=== PATIENT | female | born 1955 | race Caucasian/White ===

== ENCOUNTER 2019-09-07 19:12 | Inpatient (IN) | payer MEDICARE, OTHER ==
[~2019-09-07] VITALS: Ht 165.1 cm; Wt 83.4 kg
[~2019-09-07 19:12] MED LIST: ALBU90OI INH; BENZ100A PO; CARV3.125 PO; CELE100 PO; ESCI10; ESCI20 PO; FAMO20 PO; GINKO; HYDACE10B PO; HYDACE5 PO; KETO10 PO; LOSA25; LOSA25 PO; NAPR550 PO; Norco 5-325 Ta1 EACH PO; OMEP20ER; OMEP20ER PO; OSEL75CA PO; OXYACE5T PO; PANT20; PANT40 PO; POTCHL20ER PO; PROM25 PO; RXNAPNA550 PO; SIMV40 PO; ST JOHNS WART; TRAM50; TRAM50 PO; TRAZ50; TRAZ50 PO; WARF2.5 PO; Zofran Odt4 MG SL; [UNRECOGNIZED DRUG - CODE]
[2019-09-07] MEDS ORDERED: Coumadin2 MG PO (20:33)
[2019-09-07] MEDS ORDERED: ATORVASTATIN CA40 MG PO (20:34)
[2019-09-07] MEDS ORDERED: Protonix40 MG PO (20:34)
[2019-09-07] MEDS ORDERED: Lopressor 50 mg50 MG PO (20:34)
[2019-09-07 20:36] LABS: BASOPHILS ABSOLUTE AUTO 0.03 K/mm3 (0.00-0.23); BASOPHILS PERCENT AUTO 0 % (0-2); EOSINOPHILS ABSOLUTE AUTO 0.04 K/mm3 (0.00-0.68); EOSINOPHILS PERCENT AUTO 0 % (0-6); Hematocrit 35.2 % (33.0-51.0); IMMATURE GRAN ABSOLUTE AUTO 0.02 K/mm3 (0.00-0.10); IMMATURE GRAN PERCENT AUTO 0 % (0-1); LYMPHOCYTES ABSOLUTE AUTO 1.83 K/mm3 (0.84-5.20); LYMPHOCYTES PERCENT AUTO 18 % (21-46); MONOCYTES ABSOLUTE AUTO 0.77 K/mm3 (0.16-1.47); MONOCYTES PERCENT AUTO 8 % (4-13); Mean Corpuscular HGB 29.8 pg (26.0-34.0); Mean Corpuscular HGB Conc 31.3 g/dL (31.5-36.5); Mean Corpuscular Volume 95 fL (80-100); Mean Platelet Volume 11.5 fL (9.1-12.4); NEUTROPHILS ABSOLUTE AUTO 7.24 K/mm3 (1.96-9.15); NEUTROPHILS PERCENT AUTO 73 % (41-73); Platelet Count 155 K/mm3 (150-400); RDW Coefficient Variation 13.9 % (11.7-14.2); RDW Standard Deviation 49.7 fL (35.1-46.3); Red Blood Cell Count 3.69 M/mm3 (3.80-5.20); White Blood Cell Count 9.93 K/mm3 (4.00-11.30)
[2019-09-07] MEDS ORDERED: BENADRYL25 MG PO (20:36)
[2019-09-07 20:45] LABS: International Normalized Ratio 3.66; Prothrombin Time Results 34.5 Sec (9.7-11.5)
[2019-09-07 20:49] LABS: Alanine Aminotransfer (ALT/SGP 39 U/L (12-78); Albumin, Blood 3.2 g/dL (3.4-5.0); Albumin/Globulin Ratio 0.8 (0.8-1.8); Alk Phos 109 U/L (50-136); Anion Gap 7 mmol/L (6-16); Aspartate Aminotrans (AST/SGOT 39 U/L (12-37); Bilirubin, Total 1.3 mg/dL (0.1-1.0); Blood Urea Nitrogen 11 mg/dL (8-24); Bun/Creatinine Ratio 12.6 (12.0-20.0); CO2, Blood 23 mmol/L (21-32); Calcium, Blood 7.8 mg/dL (8.5-10.1); Chloride, Blood 106 mmol/L (98-108); Creatinine, Blood 0.88 mg/dL (0.40-1.00); Globulin, Blood 3.8 g/dL (2.2-4.0); Glomerular Filtration Rate >60 (60-); Glucose, Blood 89 mg/dL (70-99); Potassium, Blood 3.6 mmol/L (3.5-5.5); Sodium, Blood 136 mmol/L (136-145)
[2019-09-07 23:09] LABS: Source, Urine Clean Catch
[2019-09-07 23:11] LABS: Bilirubin, Urine Neg (Neg); Blood, Urine 2+ (Neg); Glucose Qualitative, Urine Neg (Neg); Ketones, Urine Neg (Neg); Leukocyte Esterase, Urine 2+ (Neg); Nitrite, Urine Neg (Neg); Protein, Urine 1+ (Neg); Urobilinogen, Urine NORM (Normal)
[2019-09-07 23:23] LABS: Appearance, Urine Clear (Clear); Bacteria Mod /hpf; Color, Urine Yellow (P-Yellow); Red Blood Cells, Urine 0-2 /hpf (0-2); Squamous Epithelial Cells Few /hpf (Few)
--- NOTE | 2019-09-08 02:37 | NUR ---
PT ARRIVAL pt arrived to PCU 8 at 0016 via gurney accompanied by ED RN. JJ. Pt complaint of severe pain, medicated by MAYANK Marrero with dilaudid per orders with stated relief. pt is alert and oriented, able to make needs known, uses call light appropriately. This pt is active in care, asks questions, converses appropriately. No apparent sign of acute distress noted. Breathing is easy, even, unlabored on RA. Pt with no complaints of pain other than pre-existing abd pain for which she is admitted (bowel perf). No complaints or concerns at this time. will continue to montior and provide care per orders.
[2019-09-08 03:53] LABS: International Normalized Ratio 1.62
[2019-09-08 04:58] LABS: Prothrombin Time Results 16.4 Sec (9.7-11.5)
--- NOTE | 2019-09-08 08:02 | NUR ---
Shift Summary Pt with no acute changes this shift. Pt remains painful and medicated per pt request with 0.5 of dilauded. VSS, no acute signs of distress. Pt alert and oriented, able to make needs known, uses call light appropriately, uses personal cane from home to aide in ambulation, BSC for voiding, awaiting stool sample for send off - no BM this shift. Pt without concern or questions for this RN at this time. No acute changes or declines from initial admission assessment. pt has been NPO since midnight per orders. No acute concerns to note at this time. Handoff given to day RN who assumes care.
[2019-09-08 09:35] LABS: BASOPHILS ABSOLUTE AUTO 0.03 K/mm3 (0.00-0.23); BASOPHILS PERCENT AUTO 1 % (0-2); EOSINOPHILS ABSOLUTE AUTO 0.07 K/mm3 (0.00-0.68); EOSINOPHILS PERCENT AUTO 1 % (0-6); Hematocrit 31.4 % (33.0-51.0); Hemoglobin 10.1 g/dL (11.5-16.0); IMMATURE GRAN ABSOLUTE AUTO 0.02 K/mm3 (0.00-0.10); IMMATURE GRAN PERCENT AUTO 0 % (0-1); LYMPHOCYTES ABSOLUTE AUTO 1.12 K/mm3 (0.84-5.20); LYMPHOCYTES PERCENT AUTO 18 % (21-46); MONOCYTES ABSOLUTE AUTO 0.52 K/mm3 (0.16-1.47); MONOCYTES PERCENT AUTO 9 % (4-13); Mean Corpuscular HGB 30.3 pg (26.0-34.0); Mean Corpuscular HGB Conc 32.2 g/dL (31.5-36.5); Mean Corpuscular Volume 94 fL (80-100); Mean Platelet Volume 11.5 fL (9.1-12.4); NEUTROPHILS ABSOLUTE AUTO 4.32 K/mm3 (1.96-9.15); NEUTROPHILS PERCENT AUTO 71 % (41-73); Platelet Count 160 K/mm3 (150-400); RDW Coefficient Variation 13.6 % (11.7-14.2); RDW Standard Deviation 47.8 fL (35.1-46.3); Red Blood Cell Count 3.33 M/mm3 (3.80-5.20); White Blood Cell Count 6.08 K/mm3 (4.00-11.30)
--- NOTE | 2019-09-08 18:54 | NUR ---
SHIFT SUMMARY PATIENT HAS HAD A FEW COMPLAINTS OF PAIN TO ABDOMEN. STATES SHE HAS SMALL FLARE UPS AFTER HAVING CLEAR LIQUIDS. MEDICATED PRN. ABLE TO MAKE HER NEEDS KNOWN. NO ACUTE ISSUES NOTED.
[2019-09-09 04:13] LABS: BASOPHILS ABSOLUTE AUTO 0.02 K/mm3 (0.00-0.23); BASOPHILS PERCENT AUTO 0 % (0-2); EOSINOPHILS ABSOLUTE AUTO 0.08 K/mm3 (0.00-0.68); EOSINOPHILS PERCENT AUTO 2 % (0-6); Hematocrit 31.3 % (33.0-51.0); Hemoglobin 10.2 g/dL (11.5-16.0); IMMATURE GRAN ABSOLUTE AUTO 0.01 K/mm3 (0.00-0.10); IMMATURE GRAN PERCENT AUTO 0 % (0-1); LYMPHOCYTES ABSOLUTE AUTO 1.12 K/mm3 (0.84-5.20); LYMPHOCYTES PERCENT AUTO 25 % (21-46); MONOCYTES PERCENT AUTO 9 % (4-13); Mean Corpuscular HGB 29.7 pg (26.0-34.0); Mean Corpuscular HGB Conc 32.6 g/dL (31.5-36.5); Mean Platelet Volume 11.4 fL (9.1-12.4); NEUTROPHILS ABSOLUTE AUTO 2.95 K/mm3 (1.96-9.15); NEUTROPHILS PERCENT AUTO 65 % (41-73); Platelet Count 168 K/mm3 (150-400); RDW Coefficient Variation 13.2 % (11.7-14.2); RDW Standard Deviation 44.3 fL (35.1-46.3); Red Blood Cell Count 3.44 M/mm3 (3.80-5.20); White Blood Cell Count 4.58 K/mm3 (4.00-11.30)
[2019-09-09 04:15] LABS: Mean Corpuscular Volume 91 fL (80-100)
--- NOTE | 2019-09-09 05:02 | NUR ---
Shift Summary VSS this shift, complaints of pain relieved with medication per emar and repositions. Pt able to ambulate with minimal assistance to bathroom, abx infused this shift without pt complaints of n/v/d. No stool sample collected as of this shift d/t pt without bm this shift. Pt remains alert and oriented, updated on plan of care, cooperative with plan but with expressed concerns regarding snf outcomes. NO acute changes from initial shift assessment, no declines noted this shift, pt is in no apparent sign of distress. Breathing remains even and unlabored on RA. Will continue to monitor and provide care per orders until day RN assumes care.
[2019-09-09 08:52] LABS: International Normalized Ratio 1.03; Prothrombin Time Results 10.9 Sec (9.7-11.5)
--- NOTE | 2019-09-09 11:51 | NUR ---
REPORT CALLED TO [facility] NURSE. REPORT CALLED TO [facility] JERO NURSE RITCHIE. RITCHIE DENIED ANY FURTHER QUESTIONS AT THIS TIME. PT INFORMED OF TRANSFER. BELONGINGS GATHERED. AIDE TO TRANSFER PT VIA WHEELCHAIR. WILL CONTINUE TO MONITOR UNTIL PT IS OFF FLOOR. VSS.
--- NOTE | 2019-09-09 15:26 | NUR ---
PT TRANSFERRED FROM PCU THIS SHIFT. SHE HAS SLEPT MOST OF THE AFTERNOON WITH NO COMPLAINTS. SHE IS ALERT AND ORIENTED AND CONTIUES TO TOLERATE CLEAR LIQUID DIET. NO GAS PASSED OF THIS TIME TIME. CALL LIGHT WITHIN REACH.
--- NOTE | 2019-09-10 03:45 | NUR ---
Continues to receive antibiotics as ordered - see MAR for details. Alert and oriented, requested and received analgesic x 1 this shift - see MAR for details. Resting quietly at this time. Call light in reach.
[2019-09-10 05:23] LABS: BASOPHILS ABSOLUTE AUTO 0.03 K/mm3 (0.00-0.23); BASOPHILS PERCENT AUTO 1 % (0-2); EOSINOPHILS PERCENT AUTO 3 % (0-6); IMMATURE GRAN PERCENT AUTO 0 % (0-1); LYMPHOCYTES ABSOLUTE AUTO 1.31 K/mm3 (0.84-5.20); LYMPHOCYTES PERCENT AUTO 34 % (21-46); MONOCYTES ABSOLUTE AUTO 0.44 K/mm3 (0.16-1.47); MONOCYTES PERCENT AUTO 11 % (4-13); Mean Corpuscular HGB 30.2 pg (26.0-34.0); Mean Corpuscular HGB Conc 32.4 g/dL (31.5-36.5); Mean Corpuscular Volume 93 fL (80-100); Mean Platelet Volume 11.4 fL (9.1-12.4); NEUTROPHILS ABSOLUTE AUTO 1.97 K/mm3 (1.96-9.15); NEUTROPHILS PERCENT AUTO 51 % (41-73); Platelet Count 190 K/mm3 (150-400); RDW Standard Deviation 44.7 fL (35.1-46.3); Red Blood Cell Count 3.64 M/mm3 (3.80-5.20); White Blood Cell Count 3.85 K/mm3 (4.00-11.30)
[2019-09-10 05:37] LABS: International Normalized Ratio 1.01; Prothrombin Time Results 10.7 Sec (9.7-11.5)
[2019-09-10 05:46] LABS: Anion Gap 7 mmol/L (6-16); Blood Urea Nitrogen 7 mg/dL (8-24); CO2, Blood 27 mmol/L (21-32); Calcium, Blood 8.3 mg/dL (8.5-10.1); Chloride, Blood 107 mmol/L (98-108); Creatinine, Blood 0.87 mg/dL (0.40-1.00); Glomerular Filtration Rate >60 (60-); Glucose, Blood 84 mg/dL (70-99); Potassium, Blood 3.5 mmol/L (3.5-5.5); Sodium, Blood 141 mmol/L (136-145)
--- NOTE | 2019-09-10 15:24 | NUR ---
SHE HAS RECEIVED DILAUDID ONCE AND ZOFRAN ONCE TODAY. BOTH WERE EFFECTIVE. SHE HAS TAKEN SOME FL'S. I HAVE NOT SEEN YET TODAY. SHE PASSED GAS WITH A SMALL AMT OF PASTEY STOOL EARLY AM BEFORE DAY SHIFT. ABD MILDLY DISTENDED. THE PAIN IS LOW IN THE ABD MOSTLY ON THE L SIDE. IT IS LESS TODAY THAN PREVIOUS DAYS.
--- NOTE | 2019-09-10 18:16 | NUR ---
SHE FEELS HERSELF BLOATING SHE EATS. NO NAUSEA. DENIES NEED FOR MORE PAIN MEDICINE AT THIS TIME. WAS JUST IN TO SEE HER. SHE SAYS HE MAY ORDER A FOLLOW UP CT SCAN FOR TOMORROW.
[2019-09-11 05:39] LABS: International Normalized Ratio 1.38; Prothrombin Time Results 14.2 Sec (9.7-11.5)
--- NOTE | 2019-09-11 07:17 | NUR ---
SHIFT SUMMARY PT A/O C/O PAIN IN ABD AND MEDICATED PER EMAR X2. INDEPENDENT IN ROOM. C/O STILL BEING BLOATED. ABLE TO SLEEP ON AND OFF T/O NIGHT. CALL LIGHT IN REACH.
--- NOTE | 2019-09-11 17:51 | NUR ---
PATIENT A/OX4, UP INDEPENDENTLY IN ROOM. NO PAIN MEDICATION NEEDED TODAY. VSS, ON RA. DENIES ANY NAUSEA. ADVANCED TO REGULAR DIET AND IS TOLERATING WELL. 20G IV TO HAND WNL AND SL BETWEEN ABX. CALM AND COOPERATIVE WITH CARE, CALLS APPROPRIATELY FOR ASSISTANCE.
[2019-09-12 05:09] LABS: International Normalized Ratio 2.28; Prothrombin Time Results 22.4 Sec (9.7-11.5)
--- NOTE | 2019-09-12 07:28 | NUR ---
SHIFT SUMMARY: PATIENT IS A&OX4, UP TO THE BATHROOM WITH STEADY GAIT. TOLERATING REGULAR DIET WELL AND VS ARE STABLE. INTERMITTENT ABD. PAIN WAS MEDICATED X1 WITH IV DILAUDID WITH GOOD EFFECT.
[2019-09-12] MEDS ORDERED: Culturelle1 CAP PO (12:38)
[2019-09-12] MEDS ORDERED: AMOCLA875 PO (12:38)
--- NOTE | 2019-09-12 14:32 | NUR ---
PT DISHCARGED AT 1315. ALL MEDICATIONS REVIEWED AND EDUCATIONAL MATERIAL SENT. MEDICATION FAXED TO [facility] AND PERSONAL BELONGING COLLECTED AND TAKEN WITH HER. PT ESCORTED VIA WHEEL CHAIR BY THIS LEGUILLON DEBEADER NO DISTRESS NOTED.
== END 2019-09-12 13:23 | disposition home or self-care (01) | DRG 392 ==
LOC: ER 19:12 → PCU 22:25 → ERHOLD 22:25 → MEDS 22:25 → PCU 09-08 00:15 → MEDS 09-09 12:01 → PCU 09-09 12:05 → MEDS 09-12 13:23
PROVIDERS: Hospitalist; Nurse Practitioner Acute Care; Physician Assistant; Surgery; ADMIT Internal Medicine
DX: K57.00 Diverticulitis of small intestine with perforation and abscess without bleeding (principal); Z79.01 Long term (current) use of anticoagulants; I48.91 Unspecified atrial fibrillation; Z87.891 Personal history of nicotine dependence; K21.9 Gastro-esophageal reflux disease without esophagitis; F32.9 Major depressive disorder, single episode, unspecified; E78.5 Hyperlipidemia, unspecified; J44.9 Chronic obstructive pulmonary disease, unspecified; K22.70 Barrett's esophagus without dysplasia; K27.9 Peptic ulcer, site unspecified, unspecified as acute or chronic, without hemorrhage or perforation
CPT/HCPCS: 36415; 80048; 80053; 81001; 85025; 85610; 86850; 86900; 86901; 87086; 90686; 94760; 96365; 96366; 96367; 96375; 99285-25; C9113; G0008; J1170; J2405; J2543; J3430; J3480; J7050

== ENCOUNTER 2020-04-27 14:43 | Emergency (ER) | payer MEDICARE, OTHER ==
[~2020-04-27] VITALS: Ht 165.1 cm; Wt 86.2 kg
[~2020-04-27 14:43] MED LIST changes: +AMOCLA875 PO; +ATOR40TA PO; +ATORVASTATIN CA40 MG PO; +BENADRYL25 MG PO; +Coumadin2 MG PO; +Culturelle1 CAP PO; +ESCI10 PO; +LISI5 PO; +Lopressor 50 mg50 MG PO; +METO50 PO; +NORCO 10-325 T1 EACH PO; +Protonix40 MG PO; +TRAZ100 PO; +WARF3 PO
[2020-04-27 15:30] LABS: BASOPHILS ABSOLUTE AUTO 0.03 K/mm3 (0.00-0.23); BASOPHILS PERCENT AUTO 0 % (0-2); EOSINOPHILS ABSOLUTE AUTO 0.04 K/mm3 (0.00-0.68); EOSINOPHILS PERCENT AUTO 1 % (0-6); Hematocrit 38.1 % (33.0-51.0); Hemoglobin 12.4 g/dL (11.5-16.0); IMMATURE GRAN ABSOLUTE AUTO 0.02 K/mm3 (0.00-0.10); IMMATURE GRAN PERCENT AUTO 0 % (0-1); LYMPHOCYTES ABSOLUTE AUTO 1.14 K/mm3 (0.84-5.20); LYMPHOCYTES PERCENT AUTO 16 % (21-46); MONOCYTES ABSOLUTE AUTO 0.36 K/mm3 (0.16-1.47); MONOCYTES PERCENT AUTO 5 % (4-13); Mean Corpuscular HGB 29.7 pg (26.0-34.0); Mean Corpuscular HGB Conc 32.5 g/dL (31.5-36.5); Mean Corpuscular Volume 91 fL (80-100); NEUTROPHILS ABSOLUTE AUTO 5.42 K/mm3 (1.96-9.15); NEUTROPHILS PERCENT AUTO 77 % (41-73); Platelet Count 184 K/mm3 (150-400); RDW Coefficient Variation 13.6 % (11.7-14.2); RDW Standard Deviation 45.9 fL (35.1-46.3); Red Blood Cell Count 4.17 M/mm3 (3.80-5.20); White Blood Cell Count 7.01 K/mm3 (4.00-11.30)
[2020-04-27 15:46] LABS: International Normalized Ratio 1.31; Prothrombin Time Results 13.8 Sec (9.7-11.5)
[2020-04-27 15:51] LABS: Alanine Aminotransfer (ALT/SGP 33 U/L (12-78); Albumin, Blood 3.7 g/dL (3.4-5.0); Albumin/Globulin Ratio 1.1 (0.8-1.8); Alk Phos 113 U/L (50-136); Anion Gap 7 mmol/L (6-16); Aspartate Aminotrans (AST/SGOT 29 U/L (12-37); Blood Urea Nitrogen 12 mg/dL (8-24); Bun/Creatinine Ratio 15.9 (12.0-20.0); CO2, Blood 25 mmol/L (21-32); Calcium, Blood 8.4 mg/dL (8.5-10.1); Chloride, Blood 110 mmol/L (98-108); Creatinine, Blood 0.76 mg/dL (0.40-1.00); Globulin, Blood 3.5 g/dL (2.2-4.0); Glomerular Filtration Rate >60 (60-); Glucose, Blood 117 mg/dL (70-99); Sodium, Blood 142 mmol/L (136-145); Total Protein, Blood 7.2 g/dL (6.4-8.2)
[2020-04-27 20:06] LABS: Source, Urine Clean Catch
[2020-04-27 20:19] LABS: Appearance, Urine Clear (Clear); Bilirubin, Urine Neg (Neg); Blood, Urine Neg (Neg); Color, Urine Yellow (P-Yellow); Glucose Qualitative, Urine Neg (Neg); Ketones, Urine Neg (Neg); Leukocyte Esterase, Urine Neg (Neg); Nitrite, Urine Neg (Neg); Protein, Urine Neg (Neg); Urobilinogen, Urine NORM (Normal)
== END 2020-04-27 20:50 | disposition home or self-care (01) ==
LOC: ER 14:43
PROVIDERS: Student in an Organized Health Care Education/Training Program
DX: R10.32 Left lower quadrant pain (principal); E86.0 Dehydration; R11.2 Nausea with vomiting, unspecified; I48.91 Unspecified atrial fibrillation; K21.9 Gastro-esophageal reflux disease without esophagitis; E78.5 Hyperlipidemia, unspecified; F32.9 Major depressive disorder, single episode, unspecified; J44.9 Chronic obstructive pulmonary disease, unspecified; Z87.891 Personal history of nicotine dependence; Z79.01 Long term (current) use of anticoagulants; Z79.899 Other long term (current) drug therapy
CPT/HCPCS: 36415; 74177; 80053; 81003; 84484; 85025; 85610; 93005; 93010; 96361; 96374-59; 96375; 96376; 99284-25; J2270; J2405; J7030; Q9967

== ENCOUNTER 2020-08-09 12:38 | Day surgery (SDC) | payer MEDICARE, OTHER ==
[~2020-08-09] VITALS: Ht 167.6 cm; Wt 82.9 kg
[~2020-08-09 12:38] MED LIST changes: +METO25ER PO; +Norco 10-325 T1 EACH PO
--- NOTE | 2020-08-09 14:51 | NUR ---
08/09/20 1451 Stacia Ashraf 1410 POST PROCEDURE. HEART RATE 100s-130s. DR. ARAGON IN ROOM, CONSIDERING ADMITTING PT FOR AFIB WITH RVR. WILL CONTINUE TO MONITOR. 1425 BP STABLE. HEART RATE 89-114. WHICH IS PATIENT'S BASELINE FROM EARLIER TODAY. DR. ARAGON NOTIFIED, WILL EVALUATE PT.
--- NOTE | 2020-08-10 13:44 | NUR ---
08/10/20 1344 Rosalba Landaverde Nicolás PT IN AFIB WITH HR 86-109 IN PREOP. PT HAS HX OF AFIB AND TAKES METOPROLOL AND COUMADIN. PT DID NOT TAKE METOPROLOL ON DAY OF PROCEDURE. DURING PROCEDURE, PT HR ELEVATED TO 124-135. PHYSICIAN NOTIFIED. NO ORDERS GIVEN AT THE TIME. HR CONTINUES TO ELEVATE, PHYSICIAN NOTIFIED WHEN HR 135-145. LABETALOL 5MG GIVEN IVP PER PHYSICIAN ORDERS. BP STABLE AT THIS TIME. PHYSICIAN CONTINUES PROCEDURE, NOTING PT HAS TORTUOU COLON. BP READING BEGIN TO ELEVATE, ALONG WITH CONTINUED INCREASING OF HR OF 145-165 (171 AT ONE POINT). PROCEDURE TERMINATED. HR CONTINUES TO REMAIN ELEVATED, DR. GRIFFIN (ANESTHESIOLOGIST) IN FOR ASSISTANCE. ESMOLOL 5ML GIVEN, HR DECREASES SLIGHTLY (135-145). PT TRANSFERRED TO STEP DOWN. CARE TRANSFERRED TO SIMONE LAU.
== END 2020-08-09 16:12 | disposition home or self-care (01) ==
LOC: ORSCSDS 12:38
PROVIDERS: Surgery
PROC: 0DJD8ZZ Inspection of Lower Intestinal Tract, Via Natural or Artificial Opening Endoscopic (ICD-10-PCS; principal; 2020-08-09 13:45)
DX: R10.9 Unspecified abdominal pain (principal); Z87.19 Personal history of other diseases of the digestive system; J44.9 Chronic obstructive pulmonary disease, unspecified; I48.91 Unspecified atrial fibrillation; I10 Essential (primary) hypertension; E78.5 Hyperlipidemia, unspecified; Z79.01 Long term (current) use of anticoagulants; Z79.899 Other long term (current) drug therapy
CPT/HCPCS: J2704; J7120

== ENCOUNTER 2020-11-01 08:54 | Day surgery (SDC) | payer MEDICARE, OTHER ==
[~2020-11-01] VITALS: Ht 165.1 cm; Wt 85.0 kg
--- NOTE | 2020-11-01 09:25 | NUR ---
11/01/20 0925 CLAUDIA REIS ONE ATTEMPT BY MAU IN RH VALVE ONE SUCCESSFUL IN RAC BY MAU PT TOW
--- NOTE | 2020-11-01 11:54 | NUR ---
11/01/20 Farhan Florentino PT NAUSEA RESOLVED AFTER MEDICATION. PT TOLERATING WATER. PT AWAKE, ALERT, ORIENTED. PT STATES SHE IS READY TO GO HOME.
== END 2020-11-01 11:57 | disposition home or self-care (01) ==
LOC: ORSCSDS 08:54
PROVIDERS: Surgery
PROC: 0DJD8ZZ Inspection of Lower Intestinal Tract, Via Natural or Artificial Opening Endoscopic (ICD-10-PCS; principal; 2020-11-01 10:00)
DX: K62.5 Hemorrhage of anus and rectum (principal); K57.30 Diverticulosis of large intestine without perforation or abscess without bleeding; I48.91 Unspecified atrial fibrillation; I10 Essential (primary) hypertension; E78.00 Pure hypercholesterolemia, unspecified; E66.9 Obesity, unspecified; Z68.31 Body mass index [BMI] 31.0-31.9, adult; Z79.01 Long term (current) use of anticoagulants; Z79.899 Other long term (current) drug therapy
CPT/HCPCS: J2405; J2704; J2765

== ENCOUNTER 2020-12-02 11:00 | Inpatient (IN) | payer MEDICARE, OTHER ==
[~2020-12-02] VITALS: Ht 167.6 cm; Wt 84.4 kg
--- NOTE | 2020-12-07 06:34 | NUR ---
Ambulatory in Day Surgery History, Chart, Medications and Allergies reviewed before start of procedure. Pre-Op teaching done. Pt verbalizes understanding. Lungs clear T/O to Auscultation.
--- NOTE | 2020-12-07 11:25 | NUR ---
12/07/20 1125 WILFRID,MARIA L EPIDURAL PLACED INTR OP BY DR ADDISON PRIOR TO PROCEDURE.
--- NOTE | 2020-12-07 13:50 | NUR ---
pt sleeping wakes to verbal stimuli falls back to sleep
--- NOTE | 2020-12-07 17:28 | NUR ---
pt awake stated she is having resless legs elevated the legs of the bed pt denies abd pain
[2020-12-08 04:18] LABS: BASOPHILS PERCENT AUTO 0 % (0-2); EOSINOPHILS PERCENT AUTO 0 % (0-6); Hematocrit 28.5 % (33.0-51.0); Hemoglobin 8.9 g/dL (11.5-16.0); IMMATURE GRAN ABSOLUTE AUTO 0.02 K/mm3 (0.00-0.10); IMMATURE GRAN PERCENT AUTO 0 % (0-1); LYMPHOCYTES ABSOLUTE AUTO 1.13 K/mm3 (0.84-5.20); LYMPHOCYTES PERCENT AUTO 12 % (21-46); MONOCYTES ABSOLUTE AUTO 0.67 K/mm3 (0.16-1.47); MONOCYTES PERCENT AUTO 7 % (4-13); Mean Corpuscular HGB 29.2 pg (26.0-34.0); Mean Corpuscular HGB Conc 31.2 g/dL (31.5-36.5); Mean Corpuscular Volume 93 fL (80-100); Mean Platelet Volume 11.8 fL (9.1-12.4); NEUTROPHILS PERCENT AUTO 82 % (41-73); Platelet Count 155 K/mm3 (150-400); RDW Coefficient Variation 14.4 % (11.7-14.2); RDW Standard Deviation 49.5 fL (35.1-46.3); Red Blood Cell Count 3.05 M/mm3 (3.80-5.20); White Blood Cell Count 9.82 K/mm3 (4.00-11.30)
[2020-12-08 04:34] LABS: Anion Gap 6 mmol/L (6-16); Blood Urea Nitrogen 13 mg/dL (8-24); Bun/Creatinine Ratio 18.8 (12.0-20.0); CO2, Blood 28 mmol/L (21-32); Calcium, Blood 7.8 mg/dL (8.5-10.1); Chloride, Blood 110 mmol/L (98-108); Creatinine, Blood 0.69 mg/dL (0.40-1.00); Glomerular Filtration Rate >60 (60-); Glucose, Blood 141 mg/dL (70-99); Potassium, Blood 4.3 mmol/L (3.5-5.5); Sodium, Blood 144 mmol/L (136-145)
--- NOTE | 2020-12-08 06:04 | NUR ---
SHIFT SUMMARY LYING IN SEMI FOWLERS WITH EYES CLOSED, HAS BEEN COOPERATIVE WITH CARE. EPIDURAL IN PROGRESS PER MD ORDERS, DENIES PAIN CURRENTLY. SIPS AND CHIPS FOR ORAL COMFORT. MIDLINE BRADEN IS PATENT, FOAM IS COMPRESSED. SHADOWING NOTED TO DRESSING. ENCOURAGED TO T/C/DB FOR COMFORT AND PREVENTION, VOICES UNDERSTANDING. NO SIGNICANT CHANGES NOTED THIS SHIFT. SAFETY MEAURES IN PLACE. WILL CONTINUE TO MONITOR UNTIL HAND OFF TO ONCOMING SHIFT USING SBAR.
--- NOTE | 2020-12-08 10:45 | NUR ---
PAIN PT RELUCTANT TO PUSH BOLUS BUTTON, STATING DOES NOT LIKE HOW EPIDURAL MAKES HER FEEL. PT RATING PAIN 7-8 ON PAIN SCALE. PROVIDED K PAD AND BOOSTED UP IN BED. REPORTS REPOSITIONING FEELS BETTER. CALL LIGHT IN REACH.
--- NOTE | 2020-12-08 11:47 | NUR ---
DR ARAGON IN TO SEE PT.
--- NOTE | 2020-12-08 17:33 | NUR ---
SUMMARY NO ACUTE CHANGES T/O SHIFT. PT RATING PAIN APPROXIMATELY 6/10. PROVIDED K PAD FOR COMFORT. ENCOURAGED EPIDURAL BOLUS HANDLE USE; PT RELUCTANT, STATING DOES NOT LIKE HOW IT MAKES HER FEEL. PT SAT UP IN CHAIR FOR FEW HOURS. NOW BACK TO BED. RESTING W/EYES CLOSED. CALL LIGHT IN REACH.
[2020-12-09 04:37] LABS: BASOPHILS ABSOLUTE AUTO 0.02 K/mm3 (0.00-0.23); BASOPHILS PERCENT AUTO 0 % (0-2); EOSINOPHILS ABSOLUTE AUTO 0.05 K/mm3 (0.00-0.68); EOSINOPHILS PERCENT AUTO 1 % (0-6); Hematocrit 28.3 % (33.0-51.0); Hemoglobin 8.7 g/dL (11.5-16.0); IMMATURE GRAN ABSOLUTE AUTO 0.03 K/mm3 (0.00-0.10); IMMATURE GRAN PERCENT AUTO 0 % (0-1); LYMPHOCYTES ABSOLUTE AUTO 1.87 K/mm3 (0.84-5.20); LYMPHOCYTES PERCENT AUTO 23 % (21-46); MONOCYTES ABSOLUTE AUTO 0.52 K/mm3 (0.16-1.47); MONOCYTES PERCENT AUTO 6 % (4-13); Mean Corpuscular HGB 29.6 pg (26.0-34.0); Mean Corpuscular HGB Conc 30.7 g/dL (31.5-36.5); Mean Corpuscular Volume 96 fL (80-100); Mean Platelet Volume 12.4 fL (9.1-12.4); NEUTROPHILS PERCENT AUTO 70 % (41-73); Platelet Count 139 K/mm3 (150-400); RDW Coefficient Variation 14.7 % (11.7-14.2); RDW Standard Deviation 51.9 fL (35.1-46.3); Red Blood Cell Count 2.94 M/mm3 (3.80-5.20); White Blood Cell Count 8.19 K/mm3 (4.00-11.30)
[2020-12-09 05:04] LABS: Alanine Aminotransfer (ALT/SGP 102 U/L (12-78); Albumin, Blood 2.7 g/dL (3.4-5.0); Albumin/Globulin Ratio 0.8 (0.8-1.8); Alk Phos 74 U/L (50-136); Anion Gap 3 mmol/L (6-16); Aspartate Aminotrans (AST/SGOT 49 U/L (12-37); Bilirubin, Total 0.7 mg/dL (0.1-1.0); Blood Urea Nitrogen 8 mg/dL (8-24); Bun/Creatinine Ratio 11.4 (12.0-20.0); CO2, Blood 33 mmol/L (21-32); Calcium, Blood 7.9 mg/dL (8.5-10.1); Chloride, Blood 108 mmol/L (98-108); Globulin, Blood 3.3 g/dL (2.2-4.0); Glomerular Filtration Rate >60 (60-); Glucose, Blood 100 mg/dL (70-99); Potassium, Blood 3.8 mmol/L (3.5-5.5); Sodium, Blood 144 mmol/L (136-145)
--- NOTE | 2020-12-09 06:57 | NUR ---
SUMMARY POSSIBLOE D/C OF EPIDURAL TODAY. PT RECEIVING MS IV FOR BREAKTHROUGH PAIN. SAHU PATENT.
--- NOTE | 2020-12-09 16:32 | NUR ---
shift summary: vss, pt remaining a/o x 4, no acute changes. pt denies need of analgesia at this time. epidural removed this shift, jones catheter will be removed at 1800. pt sitting up in chair, tolerating small amounts of clear liquids, denies n/v. franca dressing c/d/i, compressed. lap sites c/d/i. full sensation ble.
--- NOTE | 2020-12-10 05:01 | NUR ---
SHIFT SUMMARY PT IS A/O X4 AND IND IN ROOM. PT HAS ONLY C/O PAIN ONCE AND WAS MED WITH MORPHINE PER ORDER SHE REPORTS PO PAIN MED MAKE HER NAUSEOUS WITHOUT FOOD IN HER STOMACH. PT HAS DENIED NAUSEA OVERNIGHT AND IS TOLERATING CLEAR LIQUIDS. PT VOIDING AND HAD SMALL BM THIS SHIFT. HEAT PACK IN PLACE TO ABD FOR PAIN MANAGEMENT. PT RESTING IN BED AT THIS TIME WITH CALL LIGHT IN REACH.
--- NOTE | 2020-12-10 15:32 | NUR ---
SHIFT SUMMARY POD3 LAP ASST SIG COL RESECTION, BRADEN AND 4 LAP SITES WNL. PT A&OX4, VSS, INDEPENDENT IN ROOM/TO BRP/UP TO CHAIR, VOIDING WELL, BM TODAY, RACHEAL CL DIET. WILL REPORT TO ONCOMING RN.
--- NOTE | 2020-12-11 05:59 | NUR ---
SHIFT SUMMARY PT IS A/O X4 AND IND IN ROOM. S/P SIGMOID COLECTOMY ON 12/07. TOLERATING FULL LIQUID DIET W/O NAUSEA. PT REPORTED SOME PAIN OVERNIGHT AND WAS MED PRN WITH MORPHINE PER ORDERS. SHE HAS BEEN VOIDING AND HAD ONE BM THIS SHIFT. NO ACUTE CHANGES OVERNIGHT. PT RESTING IN BED WITH CALL LIGHT IN REACH.
--- NOTE | 2020-12-11 15:58 | NUR ---
SHIFT SUMMARY PT A&OX4, VSS, POD4 LAP RESECTION, BRADEN AND LAP SITES WNL, PASSING FLATUS AND BM'S, VOIDING WELL. AMBULATING IN ROOM, TO BRP, UP TO CHAIR. RACHEAL CLEAR LIQUID DIET. SHOWERED TODAY. WILL REPORT TO ONCOMING NOC RN.
--- NOTE | 2020-12-12 05:44 | NUR ---
SHIFT SUMMARY PT IS A/O X4, IND IN ROOM. AMBULATED IN HALLWAY WITH RN THIS SHIFT AND TOLERATED WELL. PAIN MANAGED WITH MORPHINE ONCE PER ORDERS. DISCUSSED TRANSITIONING TO PO PAIN MED TODAY SHE IS TOLERATING MORE PO INTAKE. PT REPORTS PASSING FLATUS OVERNIGHT, NO BM THIS SHIFT. NO ACUTE CHANGES OVERNIGHT. PT RESTING IN BED AT THIS TIME WITH CALL LIGHT IN REACH.
--- NOTE | 2020-12-12 17:10 | NUR ---
SUMMARY: PT IS POD5 SIGMOID COLECTOMY. A/O VSS. SURGICAL SITE WNL. PT PASSING GAS AND HAVING LIQ BM'S. DENIES NEED FOR PAIN MEDICATION MOST OF THE TIME. GIVEN MORPHINE X1, STATING THAT IT WORKS THE BEST. DID ENCOURAGE PO PAIN MANAGEMENT. PT TOLERATED REG DIET. HAD XR WITH BARIUM ENEMA TODAY. NO ACUTE CONCERNS. PLAN IS TO DC TOMORROW.
--- NOTE | 2020-12-13 05:36 | NUR ---
SHIFT SUMMARY A/O, ABLE TO MAKE NEEDS KNOWN. COOPERATIVE WITH CARE. CALLS AND ANSWERS QUESTIONS APPROPRIATELY. NO C/O PAIN/DISCOMFORT. INDEPENDENT IN THE ROOM. NO ACUTE CHANGES NOTED OVERNIGHT. APPEARED TO REST MUCH OF THE NIGHT. BED REMAINED IN LOWEST POSITION. CALL LIGHT AND BELONGINGS WITHIN REACH. CONTINUE WITH CURRENT PLAN OF CARE. REPORT TO ONCOMING RN.
--- NOTE | 2020-12-13 13:43 | NUR ---
DISCHARGE: PACKET PRINTED AND PT EDUCATED. NO SCRIPTS NEEDED OR MEDS FAXED. PT INSTRUCTED ON INCISION CARE, WOUND CLEANSED AND MEPILEX APPLIED TO MIDLINE INCISION. PT LEFT UNIT ON WHEELCHAIR WITH COLEEN MEJIA AT ABOUT 1230
== END 2020-12-13 12:28 | disposition home or self-care (01) | DRG 331 ==
LOC: SURS 12-07 06:03 → PRE IP 12-07 07:30 → SURS 12-07 13:20
PROVIDERS: ADMIT Surgery
PROC: 0DTN0ZZ Resection of Sigmoid Colon, Open Approach (ICD-10-PCS; principal; 2020-12-07 07:30)
DX: K57.30 Diverticulosis of large intestine without perforation or abscess without bleeding (principal); Z87.891 Personal history of nicotine dependence; I10 Essential (primary) hypertension; I48.91 Unspecified atrial fibrillation; J44.9 Chronic obstructive pulmonary disease, unspecified
CPT/HCPCS: 36415; 74270; 80048; 80053; 85025; 85610; 85730; 86850; 86900; 86901; 88307; 93005; 93010; 94762; A9270; J0295; J1100; J1650; J1885; J2250; J2270; J2370; J2405; J2704; J3010; J7120

== ENCOUNTER 2022-10-11 12:11 | Day surgery (SDC) | payer MEDICARE, OTHER ==
[~2022-10-11] VITALS: Ht 167.6 cm; Wt 80.2 kg
--- NOTE | 2022-10-11 13:15 | NUR ---
10/11/22 1315 Lita Verdin S HR NOW RANGING FROM 90'S TO 112 NOW.
--- NOTE | 2022-10-11 16:16 | NUR ---
10/11/22 1616 Lita Verdin PT. DENIES PAIN OR NAUSEA OR SORETHROAT. PT. INSTRUCTED THAT SHE HAD VOMITED DURING THE PROCEDURE. PT. DID VERBALIZE THAT HE NOSE WAS RUNNING. PT. INSTRUCTED THAT SOMETIMES O2 CAN MAKE A NOSE DRY OR RUN.
== END 2022-10-11 14:42 | disposition home or self-care (01) ==
LOC: ORSCSDS 12:11
PROVIDERS: Surgery
PROC: 0DBK8ZX Excision of Ascending Colon, Via Natural or Artificial Opening Endoscopic, Diagnostic (ICD-10-PCS; principal; 2022-10-11 13:45)
PROC: 0DBM8ZX Excision of Descending Colon, Via Natural or Artificial Opening Endoscopic, Diagnostic (ICD-10-PCS; principal; 2022-10-11 13:45)
DX: Z12.11 Encounter for screening for malignant neoplasm of colon (principal); Z80.0 Family history of malignant neoplasm of digestive organs; D12.2 Benign neoplasm of ascending colon; D12.4 Benign neoplasm of descending colon; K57.30 Diverticulosis of large intestine without perforation or abscess without bleeding; I48.91 Unspecified atrial fibrillation; J44.9 Chronic obstructive pulmonary disease, unspecified; K21.9 Gastro-esophageal reflux disease without esophagitis; E78.5 Hyperlipidemia, unspecified; I10 Essential (primary) hypertension; Z87.891 Personal history of nicotine dependence; Z79.899 Other long term (current) drug therapy; Z79.01 Long term (current) use of anticoagulants
CPT/HCPCS: 88305; J2405; J2704; J7120

== ENCOUNTER → 2024-05-02 | Outpatient (CLI) | payer MEDICARE, OTHER | LOC: LAB SHORT 13:56 → LAB 13:56 | DX: R35.0 Frequency of micturition (principal); A08.4 Viral intestinal infection, unspecified | CPT/HCPCS: 87077; 87086; 87186 ==

== ENCOUNTER → 2025-02-11 | Outpatient (CLI) | payer MEDICARE, OTHER | LOC: LAB 16:31 → LAB SHORT 16:31 | DX: L02.811 Cutaneous abscess of head [any part, except face] (principal) | CPT/HCPCS: 87070; 87075; 87076; 87185; 87205 ==

== ENCOUNTER → 2025-08-04 | Outpatient (CLI) | payer MEDICARE, OTHER ==
[2025-08-06 13:46] LABS: Campylobacter Sp Not Detected (NOT DETECT); E. Coli O157 Not Detected (NOT DETECT); Enteroaggregative E. coli-EAEC Not Detected (NOT DETECT); Enteropathogenic E. coli-EPEC Not Detected (NOT DETECT); Enterotoxigenic E. coli-ETEC Not Detected (NOT DETECT); Salmonella Sp Not Detected (NOT DETECT); Shiga Toxin-prod E. coli-STEC Not Detected (NOT DETECT); Shigella/Enteroin E. coli-EIEC Not Detected (NOT DETECT); Vibrio Sp Not Detected (NOT DETECT)
[2025-08-10 16:12] LABS: CALPROTECTIN,FECAL 137 ug/g (<=49)
== END ==
LOC: LAB 11:18 → LAB SHORT 11:18
PROVIDERS: Nurse Practitioner Family
DX: R19.7 Diarrhea, unspecified (principal)
CPT/HCPCS: 83993; 87338; 87507

== ENCOUNTER → 2025-09-15 | Outpatient (CLI) | payer MEDICARE, OTHER ==
[2025-09-16 15:24] LABS: Stool Occult Bld Immuno 1 Negative (NEGATIVE)
== END ==
LOC: LAB SHORT 13:53 → LAB 13:53
PROVIDERS: Nurse Practitioner Family
DX: R19.7 Diarrhea, unspecified (principal)
CPT/HCPCS: 82274